=== PATIENT | female | born 1985 | race Caucasian/White ===

== ENCOUNTER 2017-04-11 18:23 | Inpatient (IN) | payer MEDICAID, OTHER ==
[~2017-04-11] VITALS: Ht 152.4 cm; Wt 86.0 kg
[~2017-04-11 18:23] MED LIST: PROT40TA PO; Z.0.BCPILL PO; ZOFR4TAB3 SL
[2017-04-11] MEDS: LACTATED RINGER'S 1000 ML IV SCH (19:12)
[2017-04-11 20:19] LABS: AUTOMATED NEUTROPHIL # 7.1 TH/MM3 (1.8-7.7); BASOPHIL % 0.2 % (0.0-2.0); EOSINOPHIL # 0.1 TH/MM3 (0-0.4); EOSINOPHIL % 0.7 % (0.0-4.0); HEMATOCRIT 30.5 % (35.0-46.0); HEMOGLOBIN 10.5 GM/DL (11.6-15.3); LYMPH % 13.8 % (9.0-44.0); LYMPHOCYTE # 1.3 TH/MM3 (1.0-4.8); MEAN CELL VOLUME 76.5 FL (80.0-100.0); MEAN CORPUSCULAR HEMOGLOBIN 26.2 PG (27.0-34.0); MEAN CORPUSCULAR HGB CONC 34.2 % (32.0-36.0); MEAN PLATELET VOLUME 8.2 FL (7.0-11.0); MONO % 10.1 % (0.0-8.0); NEUT % 75.2 % (16.0-70.0); PLATELET COUNT 192 TH/MM3 (150-450); RED BLOOD COUNT 3.99 MIL/MM3 (4.00-5.30); WHITE BLOOD COUNT 9.5 TH/MM3 (4.0-11.0)
[2017-04-11 20:24] LABS: BACTERIA, URINE RARE /hpf; BILIRUBIN, URINE NEG (NEG); BLOOD, URINE NEG (NEG); GLUCOSE,URINE NEG (NEG); KETONE, URINE NEG (NEG); MUCUS URINE FEW /lpf (OCC); NITRITE,URINE NEG (NEG); PH, URINE 5.5 (5.0-8.5); SQUAMOUS EPITHELIAL CELL URINE 3 /hpf (0-5); URINE COLOR YELLOW (YELLW/STRAW); URINE LEUKOCYTE ESTERASE NEG (NEG)
[2017-04-11] MEDS: LACTATED RINGER'S 1000 ML INJ 1,000 ML IV SCH (20:26)
[2017-04-11] MEDS ORDERED: DINOPROSTONE 10 MG INSERT-LEAVE FOR 12 HOURS VAGINAL ONE (20:30)
[2017-04-11] MEDS ORDERED: MINERAL OIL 10 ML VIAL TOPICAL PRN (20:30)
[2017-04-11] MEDS ORDERED: NS 1000 ML OTHER PRN (20:30)
[2017-04-11] MEDS ORDERED: LIDOCAINE HCL 1% 50 ML VIAL I-DERMAL PRN (20:30)
[2017-04-11] MEDS ORDERED: OXYTOCIN 30 UNITS 500ML PREMIX IV ONE (20:30)
[2017-04-11] MEDS ORDERED: NS 1000 ML IV PRN (20:30)
[2017-04-11] MEDS ORDERED: LACTATED RINGER'S 1000 ML BOLUS IV PRN (20:30)
[2017-04-11] MEDS ORDERED: CITRIC ACID-SODIUM CITRATE LIQ 30 ML UDC PO SCH (20:30)
[2017-04-11] MEDS ORDERED: ONDANSETRON HCL 4 MG/2 ML VIAL IV PUSH PRN (20:30)
[2017-04-11] MEDS ORDERED: LIDOCAINE HCL 1% 50 ML VIAL INFIL PRN (20:30)
[2017-04-11] MEDS ORDERED: NS 500 ML BOLUS IV PRN (20:30)
[2017-04-11 22:30] VITALS: RESP 18; TEMP 98.3
[2017-04-11 22:32] VITALS: BP 118/78; PULSE 96
[2017-04-12] VITALS (41 sets, daily range): BP systolic 100–141; BP diastolic 54–107; PULSE 70–127; RESP 18–20; TEMP 97.6–98.9; O2SAT 99
[2017-04-12] MEDS: LACTATED RINGER'S 1000 ML INJ 1,000 ML IV SCH (04:30)
[2017-04-12] MEDS: LACTATED RINGER'S 1000 ML IV SCH (04:38)
[2017-04-12] MEDS ORDERED: OXYTOCIN 30 UNITS/NS 500ML PREMIX IV PRN (06:00)
[2017-04-12] MEDS ORDERED: fentaNYL 2MCG-BUPIV 0.125% INJ 100 ML ONE (08:14)
[2017-04-12] MEDS ORDERED: ePHEDrine/NS 25 MG/5 ML SYRINGE ONE (08:14)
--- NOTE | 2017-04-12 08:29 | HHI.PR ---
GENERAL STORE MANAGER Note Note pt of Dr. Bauer, Admit last evening for labor induction due to oligohydramnios at term very uncomfortable, barely able to tolerate vaginal exam; stretchy 5/50/-2 to -3 pt desires epidural anticipate Cat I tracing continue active mgmt Chelsea Bello MD Apr 12, 2017 08:29
[2017-04-12] MEDS ORDERED: fentaNYL 2MCG-BUPIV 0.125% 100 ML EPIDURAL SCH (10:15)
[2017-04-12] MEDS ORDERED: DO NOT ADMINISTER ANTICOAGULANTS PRN (10:15)
[2017-04-12] MEDS ORDERED: ePHEDrine/NS 25 MG/5 ML SYRINGE IV PUSH PRN (10:15)
[2017-04-12] MEDS ORDERED: NO SYSTEM NARCOTICS PRN (10:15)
--- NOTE | 2017-04-12 10:15 | MH ---
cc: JADYN JOSE DATE OF ADMISSION 04/11/2017 DATE OF 1985 CHIEF COMPLAINT The patient at term for elective induction of labor. PATIENT HISTORY The patient is a 32-year-old female 2, para 1, last menstrual period was July 06, 2016. Her estimated due date was April 12, 2017. The patient has been followed with routine care without significant findings until her visit today on April 11. She is 39 weeks and 6 days. Ultrasound was obtained to evaluate well-being. The amniotic fluid volume measured 2 cm which is well below normal, presence of oligohydramnios necessitates the need for induction. The patient's course, the patient had an unremarkable . Group B strep status is negative. Her blood type is O+. The patient has had a history of hypothyroidism previously, but thyroid functions within normal during this . PAST MEDICAL HISTORY Allergies: She has no known drug allergies. Again, history of hypothyroidism controlled off medication. FAMILY HISTORY Noncontributory PAST SURGICAL HISTORY Noncontributory OBSTETRICAL HISTORY The patient had a successful vaginal delivery in 2012 of a healthy female weighing 7 pounds 6 ounces without incident. SOCIAL HISTORY The patient is , employed. The patient denies any use of alcohol, tobacco or illicit substances. The patient is compliant with her vitamins. PHYSICAL EXAM The patient is a well-appearing well-nourished female in no acute stress. VITAL SIGNS: Stable. Blood pressures 116/70. heart tones were in the 140s. She weighs 193 pounds. Her total weight gain for this is approximately 45 pounds. HEENT: Shows no adenopathy, no thyromegaly. NECK: Supple. Full range of motion. LUNGS: Clear in all amaya. CARDIAC: Regular rhythm without murmur, rub or gallop. ABDOMEN: Gravid, full-term, fundal height is 42 cm. Cervix is posterior, soft, 50% effaced, barely a fingertip on exam. Presenting part is -2 to -3 station, vertex. EXTREMITIES: Symmetrical, full range of motion. There is no cyanosis, clubbing or edema. ASSESSMENT The patient is at 38 weeks and 6 days with a single viable acute gestation, oligohydramnios, group B strep status negative, history of hypothyroidism that is normal currently off medication. PLAN The plan is Cervidil induction over night. MD RICKEY River/NILO /12:27 PM /10:10 AM
[2017-04-12] MEDS ORDERED: PREN1TAB45 PO (11:35)
[2017-04-12] MEDS ORDERED: LIDOCAINE 1%/EPINEPHrine 1:100,000 SOLN 30 ML VIAL ONE (14:37)
[2017-04-12] MEDS ORDERED: DIPHTH/TETANUS/ACEL PERTUSSIS (BOOSTER) 0.5 ML VIAL/PFS IM ONE (16:00)
[2017-04-12] MEDS ORDERED: MEASLES, MUMPS, RUBELLA VACCINE 0.5 ML VIAL SQ ONE (16:00)
[2017-04-12] MEDS ORDERED: DOCUSATE SODIUM 50 MG/SENNA 8.6 MG TAB PO PRN (16:15)
[2017-04-12] MEDS ORDERED: ZOLPIDEM TARTRATE 5 MG TAB PO PRN (16:15)
[2017-04-12] MEDS ORDERED: ONDANSETRON ODT 4 MG TAB PO PRN (16:15)
[2017-04-12] MEDS ORDERED: WITCH HAZEL 50%/GLYCERIN 12.5% 40 PAD JAR TOPICAL PRN (16:15)
[2017-04-12] MEDS ORDERED: ALUMINUM/MAGNESIUM/SIMETH 30 ML CUP PO PRN (16:15)
[2017-04-12] MEDS ORDERED: SODIUM CHLORIDE 0.9% FLUSH 10 ML FLUSH IV FLUSH PRN (16:15)
[2017-04-12] MEDS ORDERED: OXYTOCIN 10 UNIT/ML AMP XX PRN (16:15)
[2017-04-12] MEDS ORDERED: OXYTOCIN 30 UNITS-500ML PREMIX 500 ML IV SCH (16:15)
[2017-04-12] MEDS ORDERED: BENZOCAINE 20% TOPICAL SPRAY 60 ML CAN TOPICAL PRN (16:15)
--- NOTE | 2017-04-12 16:18 | PD.OB.DELI ---
Gest age assessed date: Apr 11, 2017 Gest age assessed time: 11:00 Pt started active labor?: No Medical induction of labor?: Yes Medical induction start date: Apr 11, 2017 Medical induction start time: 19:30 Artificial ROM date: Apr 12, 2017 Artifical ROM time: 11:30 Anesthesia: Epidural Episiotomy: None Vaginal Delivery: Normal Presentation: Occiput anterior Nuchal Cord: None Delayed cord clamping (45 sec): No Shoulder Dystocia: Suprapubic pressure given, Bay maneuver done Infant: Female Delivery date: Apr 12, 2017 Delivery time: 16:00 One Minute : 9 Five Minute : 9 Placenta: Spontaneous delivery Laceration: Vaginal laceration (left,small laceratiion,2cm) Repair: Vicryl interrupted Estimated blood loss: 250 Jose Bauer MD Apr 12, 2017 16:17
[2017-04-12] MEDS ORDERED: IBUP-232 PO (16:53)
--- NOTE | 2017-04-12 16:53 | HHI.DCPOC ---
Discharge Care Plan Diagnosis: (1) Normal vaginal delivery Report Symptoms to Your Doctor -Temperature above 100.5 degrees -Redness, of incision or excessive or foul smelling drainage -Unusual pain or calf pain -Increased vaginal bleeding -Painful or difficulty urinating -Feelings of extreme sadness or anxiety after 2 weeks Goals to Promote Your Health * To prevent worsening of your condition and complications * To maintain your health at the optimal level Directions to Meet Your Goals Take your medications as prescribed Follow your dietary instruction Follow activity as directed Ensure plenty of rest for recovery Drink fluids for hydration Keep your appointments as scheduled Take your immunizations and boosters as scheduled If your symptoms worsen call your PCP, if no PCP go to Urgent Care Center or Emergency Room Smoking is Dangerous to Your Health. Avoid second hand smoke Call the 24-hour crisis hotline for domestic abuse at Frederick Quiles MD Apr 12, 2017 16:53
[2017-04-12] MEDS: IBUPROFEN 800 MG TAB PO PRN (19:13)
[2017-04-12] MEDS ORDERED: SODIUM CHLORIDE 0.9% FLUSH 10 ML FLUSH IV FLUSH SCH (21:00)
[2017-04-13] MEDS: IBUPROFEN 800 MG TAB PO PRN ×3 (03:12→23:01)
[2017-04-13 07:30] VITALS: BP 131/90; PULSE 90; RESP 20; TEMP 98.2
[2017-04-13] MEDS: ACETAMINOPHEN 325 MG TAB PO PRN ×2 (07:36→17:30)
--- NOTE | 2017-04-13 07:54 | HHI.OB ---
Subjective Post Day: 1 Objective Vitals/I&O Vital Signs Date Time Temp Pulse Resp B/P (MAP) Pulse Ox O2 Delivery O2 Flow Rate FiO2 04/12/17 20:05 98.6 70 18 124/73 (90) 99 04/12/17 18:00 98.9 18 04/12/17 17:45 126 120/82 (95) 04/12/17 17:30 18 04/12/17 17:30 116 132/86 (101) 04/12/17 17:15 123 134/89 (104) 04/12/17 17:15 18 04/12/17 17:00 18 04/12/17 17:00 114 130/91 (104) 04/12/17 16:45 110 133/80 (97) 04/12/17 16:45 19 04/12/17 16:30 115 128/83 (98) 04/12/17 16:30 98.2 04/12/17 16:30 18 04/12/17 16:15 116 121/107 (112) 04/12/17 16:15 19 04/12/17 16:04 109 100/54 (69) 04/12/17 16:01 127 120/84 (96) 04/12/17 15:30 114 131/81 (98) 04/12/17 15:00 108 119/75 (90) 04/12/17 14:30 114 114/71 (85) 04/12/17 14:00 105 108/72 (84) 04/12/17 13:30 113 121/83 (96) 04/12/17 13:00 114 121/90 (100) 04/12/17 12:45 98.0 04/12/17 12:30 100 112/71 (85) 04/12/17 12:15 20 04/12/17 12:14 99 124/92 (103) 04/12/17 12:00 104 124/92 (103) 04/12/17 11:30 104 105/71 (82) 04/12/17 11:15 98.3 04/12/17 11:00 95 117/80 (92) 04/12/17 10:30 90 104/68 (80) 04/12/17 10:00 100 105/66 (79) 04/12/17 09:30 92 128/89 (102) 04/12/17 09:15 87 128/83 (98) 04/12/17 09:05 98.3 04/12/17 09:00 88 130/82 (98) 04/12/17 08:50 90 04/12/17 08:50 94 127/81 (96) 04/12/17 08:45 93 04/12/17 08:45 93 128/84 (99) 04/12/17 08:40 98 04/12/17 08:40 118/75 (89) 04/12/17 08:40 103 04/12/17 08:35 117 04/12/17 08:35 108 04/12/17 08:35 114/68 (83) 04/12/17 08:30 96 04/12/17 08:30 100 126/89 (101) 04/12/17 08:26 110 141/93 (109) 04/12/17 07:54 91 128/87 (101) Objective Remarks GENERAL: Well-nourished, well-developed patient. CARDIOVASCULAR: Regular rate and rhythm without murmurs, gallops, or rubs. RESPIRATORY: Breath sounds equal bilaterally. No accessory muscle use. ABDOMEN/GI: Abdomen soft, non-tender. Fundus: Firm, non-tender at umbilicus. GENITOURINARY: Light bleeding. EXTREMITIES: No cyanosis or edema, non-tender, without signs of DVT. Medications and IVs Current Medications Medications (Trade) Dose Ordered Sig/Reginaldo Route Start Time Stop Time Status Last Admin Lactated Ringer's 1,000 ml @ 125 mls/hr Q8H IV 04/11/17 20:30 Sodium Chloride 1,000 ml @ 0 mls/hr UNSCH PRN OTHER 04/11/17 20:30 Lactated Ringer's 1,000 ml @ 125 mls/hr Q8H IV 04/11/17 20:30 04/12/17 04:38 Lactated Ringer's 1,000 ml @ 3,000 mls/hr BOLUS PRN IV 04/11/17 20:30 Sodium Chloride 500 ml @ 1,000 mls/hr BOLUS PRN IV 04/11/17 20:30 Sodium Chloride 1,000 ml @ 100 mls/hr Q10H PRN IV 04/11/17 20:30 (Bicitra Liq) 30 ml SOLAR INSTALLATION TECHNICIAN PO 04/11/17 20:30 04/14/17 20:29 (Zofran Inj) 4 mg Q6H PRN IV PUSH 04/11/17 20:30 04/12/17 02:14 (fentaNYL INJ) 50 mcg Q1H PRN IV PUSH 04/11/17 20:30 (fentaNYL INJ) 100 mcg Q1H PRN IV PUSH 04/11/17 20:30 04/12/17 04:41 (Muri-Lube Oil) 10 ml UNSCH PRN TOPICAL 04/11/17 20:30 Oxytocin 500 ml @ 0 mls/hr TITRATE PRN IV 04/12/17 06:00 04/12/17 06:09 Miscellaneous Information No systemic narcotics to be given except... UNSCH PRN .XX 04/12/17 10:15 04/13/17 10:14 Miscellaneous Information DO NOT ADMINISTER ANY ANTICOAGUL... UNSCH PRN .XX 04/12/17 10:15 04/13/17 10:14 Fentanyl/ Bupivacaine HCl 100 ml @ 0 mls/hr TITRATE EPIDURAL 04/12/17 10:15 (ePHEDrine/NS 25 MG/5 ML SYR) 10 mg UNSCH PRN IV PUSH 04/12/17 10:15 04/13/17 10:14 (Pitocin Inj) 20 units UNSCH X1 PRN XX 04/12/17 16:15 04/13/17 16:14 (NS Flush) 2 ml BID IV FLUSH 04/12/17 21:00 (NS Flush) 2 ml UNSCH PRN IV FLUSH 04/12/17 16:15 (Tylenol) 650 mg Q4H PRN PO 04/12/17 16:15 04/13/17 07:36 (Motrin) 800 mg Q8H PRN PO 04/12/17 16:15 04/13/17 03:12 (Americaine 20% Top Spr) 1 spray Q4H PRN TOPICAL 04/12/17 16:15 04/12/17 21:00 (Tucks Pads) 1 applic QID PRN TOPICAL 04/12/17 16:15 04/12/17 21:00 (Phyllis-Colace) 2 tab Q12H PRN PO 04/12/17 16:15 (Ambien) 5 mg HS PRN PO 04/12/17 16:15 (Mag-Al Plus Susp Liq) 15 ml Q8H PRN PO 04/12/17 16:15 (Zofran Odt) 4 mg Q6H PRN PO 04/12/17 16:15 Assessment/Plan Problem List: (1) (spontaneous vaginal delivery) ICD Codes: O80 - Encounter for full-term uncomplicated delivery Status: Acute Assessment and Plan PPD#1 routine supportive care pt's daughter at home has confirmed flu; mask precautions; will order flu swab for pt due to symptoms & start Tamiflu for h/o exposure anticipate d/c to home tmrw Discharge Planning routine Chelsea Bello MD Apr 13, 2017 07:54
[2017-04-13 09:00] VITALS: BP 116/85
[2017-04-13] MEDS: OSELTAMIVIR PHOSPHATE 75 MG CAP PO SCH ×2 (09:38→23:01)
[2017-04-13 20:35] VITALS: BP 125/80; PULSE 88; RESP 16; TEMP 97.8
[2017-04-14 08:05] VITALS: BP 109/81; PULSE 85; RESP 18; TEMP 97.9; O2SAT 97
--- NOTE | 2017-04-14 08:23 | HHI.OB ---
Subjective Post Day: 2 Remarks pt with URI, neg flu test Objective Vitals/I&O Vital Signs Date Time Temp Pulse Resp B/P (MAP) Pulse Ox O2 Delivery O2 Flow Rate FiO2 04/13/17 20:35 97.8 88 16 125/80 (95) 04/13/17 09:00 116/85 (95) Objective Remarks GENERAL: Well-nourished, well-developed patient. CARDIOVASCULAR: Regular rate and rhythm without murmurs, gallops, or rubs. RESPIRATORY: Breath sounds equal bilaterally. No accessory muscle use. ABDOMEN/GI: Abdomen soft, non-tender. Fundus: Firm, non-tender at umbilicus. GENITOURINARY: Light bleeding. EXTREMITIES: No cyanosis or edema, non-tender, without signs of DVT. Medications and IVs Current Medications Medications (Trade) Dose Ordered Sig/Reginaldo Route Start Time Stop Time Status Last Admin Lactated Ringer's 1,000 ml @ 125 mls/hr Q8H IV 04/11/17 20:30 Sodium Chloride 1,000 ml @ 0 mls/hr UNSCH PRN OTHER 04/11/17 20:30 Lactated Ringer's 1,000 ml @ 125 mls/hr Q8H IV 04/11/17 20:30 04/12/17 04:38 Lactated Ringer's 1,000 ml @ 3,000 mls/hr BOLUS PRN IV 04/11/17 20:30 Sodium Chloride 500 ml @ 1,000 mls/hr BOLUS PRN IV 04/11/17 20:30 Sodium Chloride 1,000 ml @ 100 mls/hr Q10H PRN IV 04/11/17 20:30 (Bicitra Liq) 30 ml LAND SURVEYING MANAGER PO 04/11/17 20:30 04/14/17 20:29 (Zofran Inj) 4 mg Q6H PRN IV PUSH 04/11/17 20:30 04/12/17 02:14 (fentaNYL INJ) 50 mcg Q1H PRN IV PUSH 04/11/17 20:30 (fentaNYL INJ) 100 mcg Q1H PRN IV PUSH 04/11/17 20:30 04/12/17 04:41 (Muri-Lube Oil) 10 ml UNSCH PRN TOPICAL 04/11/17 20:30 Oxytocin 500 ml @ 0 mls/hr TITRATE PRN IV 04/12/17 06:00 04/12/17 06:09 Fentanyl/ Bupivacaine HCl 100 ml @ 0 mls/hr TITRATE EPIDURAL 04/12/17 10:15 (NS Flush) 2 ml BID IV FLUSH 04/12/17 21:00 (NS Flush) 2 ml UNSCH PRN IV FLUSH 04/12/17 16:15 (Tylenol) 650 mg Q4H PRN PO 04/12/17 16:15 04/13/17 17:30 (Motrin) 800 mg Q8H PRN PO 04/12/17 16:15 04/13/17 23:01 (Americaine 20% Top Spr) 1 spray Q4H PRN TOPICAL 04/12/17 16:15 04/12/17 21:00 (Tucks Pads) 1 applic QID PRN TOPICAL 04/12/17 16:15 04/12/17 21:00 (Phyllis-Colace) 2 tab Q12H PRN PO 04/12/17 16:15 (Ambien) 5 mg HS PRN PO 04/12/17 16:15 (Mag-Al Plus Susp Liq) 15 ml Q8H PRN PO 04/12/17 16:15 (Zofran Odt) 4 mg Q6H PRN PO 04/12/17 16:15 (Tamiflu) 75 mg BID PO 04/13/17 09:00 04/13/17 23:01 Assessment/Plan Problem List: (1) (spontaneous vaginal delivery) ICD Codes: O80 - Encounter for full-term uncomplicated delivery Status: Acute Assessment and Plan PPD#2 routine supportive care pt's daughter at home has confirmed flu; mask precautions; will order flu swab for pt due to symptoms & start Tamiflu for h/o exposure anticipate d/c to home Discharge Planning routine Attending Attestation pt seen by Ann-Marie Borrego MD Apr 14, 2017 08:22
[2017-04-14] MEDS ORDERED: OSEL75 PO (08:25)
[2017-04-14] MEDS: OSELTAMIVIR PHOSPHATE 75 MG CAP PO SCH (09:46)
[2017-04-14] MEDS: IBUPROFEN 800 MG TAB PO PRN (09:47)
[2017-04-14] MEDS: ACETAMINOPHEN 325 MG TAB PO PRN (10:04)
== END 2017-04-14 14:20 | disposition home or self-care (01) | DRG 775 ==
LOC: H2EA 18:23 → H1EA 04-12 18:13
PROVIDERS: ADMIT Obstetrics & Gynecology; ATTEND Obstetrics & Gynecology
PROC: 3E0P7VZ Introduction of Hormone into Female Reproductive, Via Natural or Artificial Opening (ICD-10-PCS; 2017-04-11)
PROC: 10E0XZZ Delivery of Products of Conception, External Approach (ICD-10-PCS; principal; 2017-04-12)
PROC: 0KQM0ZZ Repair Perineum Muscle, Open Approach (ICD-10-PCS; 2017-04-12)
DX: O41.03X0 Oligohydramnios, third trimester, not applicable or unspecified (principal); O71.4 Obstetric high vaginal laceration alone; E03.9 Hypothyroidism, unspecified; O99.284 Endocrine, nutritional and metabolic diseases complicating childbirth; O66.0 Obstructed labor due to shoulder dystocia; Z37.0 Single live birth; Z3A.39 39 weeks gestation of pregnancy
CPT/HCPCS: 59025; 80307; 81001; 82805; 85025; 86900; 86901; 87804; 90715; J2405; J2590; J3010; J7120